=== PATIENT | female | born 1990 | race Two or more races ===

== ENCOUNTER 2023-09-21 14:50 | Emergency (ER) | payer OTHER ==
[~2023-09-21] VITALS: Ht 157.5 cm; Wt 68.0 kg
[2023-09-21] MEDS ORDERED: PRENA1 TRUE CO1 EACH (15:35)
== END 2023-09-21 23:31 | disposition home or self-care (01) ==
LOC: ER 14:51
DX: O26.891 Other specified pregnancy related conditions, first trimester (principal); R10.2 Pelvic and perineal pain; Z3A.09 9 weeks gestation of pregnancy